=== PATIENT | male | born 1970 | race Caucasian/White ===

== ENCOUNTER 2019-07-28 | Emergency (ER) | payer BC, OTHER ==
[~2019-07-28] MED LIST: CELEXA20 M1 PO
[2019-07-28] MEDS ORDERED: NAPROXEN500 MG PO (09:23)
[2019-07-28] MEDS ORDERED: FLEXERIL PO (09:24)
== END 2019-07-28 09:37 | disposition home or self-care (01) | DRG 552 ==
DX: M54.2 Cervicalgia (principal); F17.200 Nicotine dependence, unspecified, uncomplicated; M47.812 Spondylosis without myelopathy or radiculopathy, cervical region; V43.53XA Car driver injured in collision with pick-up truck in traffic accident, initial encounter